=== PATIENT | female | born 1960 | race African-American/Black ===

== ENCOUNTER → 2019-04-18 | Outpatient (CLI) | payer OTHER ==
--- NOTE | 2019-04-18 17:43 | PCVCIMAG ---
APPROVED REPORT Study performed: 04/18/2019 13:46:41 EXAM: Comprehensive 2D, Doppler, and color-flow Echocardiogram Patient Location: Echo lab Status: routine BSA: 1.73 HR: 67 bpmBP: 122/70 mmHg Rhythm: NSR Other Information Study Quality: Good Risk Factors: Cardiac Risk Factors: HTN Indications Palpitations, Chest Pain 2D Dimensions IVSd: 10.54 (7-11mm)LVOT Diam: 18.07 (18-24mm) LVDd: 37.84 mm PWd: 10.54 (7-11mm)Ascending Ao: 34.37 (22-36mm) LVDs: 27.84 (25-40mm) Left Atrium: 31.71 (27-40mm) Aortic Root: 27.51 mm LV Single Plane 4CH: 57.39 % LV Single Plane 2CH: 59.27 % Biplane EF: 57.7 % Volumes Left Atrial Volume (Systole) Single Plane 4CH: 29.41 mLSingle Plane 2CH: 31.54 mL LA ESV Index: 19.00 mL/m2 Aortic Valve AoV Peak Beto.: 1.34 m/s AO Peak Gr.: 7.14 mmHg Mitral Valve E/A Ratio: 0.7 MV Decel. Time: 304.54 ms MV E Max Beto.: 0.72 m/s MV A Beto.: 1.02 m/s TDI E/Lateral E': 12.00E/Medial E': 12.00 Medial E' Beto.: 0.06 m/s Lateral E' Beto.: 0.06 m/s Pulmonary Valve PV Peak Gr.: 1.87 mmHg Pulmonary Vein P Vein S: 0.70 m/sP Vein A: 0.53 m/s P Vein D: 0.37 m/sP Vein A Dur.: 86.5 msec P Vein S/D Ratio: 1.89 Tricuspid Valve TR Peak Beto.: 2.47 m/s TR Peak Gr.: 24.39 mmHg Left Ventricle The left ventricle is normal size. There is normal LV segmental wall motion. There is normal left ventricular wall thickness. Left ventricular systolic function is normal. The left ventricular ejection fraction is within the normal range. LVEF is 60-65%. Right Ventricle The right ventricle is normal size. The right ventricular systolic function is normal. Atria The left atrium size is normal. The right atrium size is normal. Aortic Valve The aortic valve is normal in structure. No aortic regurgitation is present. There is no aortic valvular stenosis. Mitral Valve The mitral valve is normal in structure. There is no mitral valve regurgitation noted. No evidence of mitral valve stenosis. Tricuspid Valve The tricuspid valve is normal in structure. Trace to mild tricuspid regurgitation. Pulmonary artery pressure is 31mmhg. Pulmonic Valve The pulmonary valve is normal in structure. There is no pulmonic valvular regurgitation. Great Vessels The aortic root is normal in size. IVC is normal in size and collapses >50% with inspiration. Pericardium There is no pericardial effusion. <Conclusion> The left ventricle is normal size. LVEF is 60-65%. The right ventricle is normal size. The left atrium size is normal. The aortic valve is normal in structure. The left atrium size is normal. The aortic valve is normal in structure. There is no mitral valve regurgitation noted. Trace to mild tricuspid regurgitation. Pulmonary artery pressure is 31mmhg. The aortic root is normal in size. There is no pericardial effusion.
--- NOTE | 2019-04-18 17:54 | PCVCIMAG ---
APPROVED REPORT Patient Location: Echo lab Room #: Stress Nurse: Dee Rangel RN Indications: Hypertension, Palpitations, Chest pain. The patient exercised according to the [place] for 9:00 mins, acheiving a work level of Max. Mets 10.10. The resting heart rate of 73 bpm perri to a maximal heart rate of 176 bpm. This value represents 108% of the maximal, age predicted heart rate. The resting blood pressure of 122/100 mmHg., perri to a maximu blood pressure of 162/88mmHg. The exercise test was stopped due to fatigue. Conclusion #1 patient stopped secondary fatigue and shortness of breath no production of chest pain or angina was elicited. #2 no diagnostic EKG changes consistent with ischemia no significant ectopy #3 good exercise tolerance with an appropriate hemodynamic response. Impression: Negative treadmill stress test for ischemia no significant dysrhythmias appropriate hemodynamic response noted.
== END | disposition home or self-care (01) ==
LOC: PCVCIMAG 13:21
PROVIDERS: ATTEND Internal Medicine Cardiovascular Disease
DX: I36.1 Nonrheumatic tricuspid (valve) insufficiency (principal); R07.9 Chest pain, unspecified; R00.2 Palpitations
CPT/HCPCS: 93017; 93306